=== PATIENT | male | born 1990 | race Caucasian/White ===

== ENCOUNTER 2020-12-30 20:22 | Emergency (ER) | payer OTHER ==
[~2020-12-30] VITALS: Ht 182.9 cm; Wt 106.7 kg
[~2020-12-30 20:22] MED LIST: TRM50T PO
[2020-12-30] MEDS ORDERED: LACTATED RINGERS 1,000 ML IV SCH (20:30)
[2020-12-30] MEDS ORDERED: NICOTINE 21 MG (NICODERM) PATCH TD ONE (20:30)
--- NOTE | 2020-12-30 20:38 | ED Chest Pain ---
General Chief Complaint: Chest Pain Stated Complaint: CHEST PAIN Source: patient Exam Limitations: no limitations History of Present Illness Date Seen by Provider: Dec 30, 2020 Time Seen by Provider: 20:24 Initial Comments 30-year-old male with no significant past medical history coming in due to chest pain. He states that started around 9 PM last night, is very sharp, intermittent, and occurs numerous times per hour. When it does occur, typically is a few seconds at a time and he notices it with breathing. He has never had pain like this before. Denies any personal history of blood clots in his leg or lungs. Denies any cough or hemoptysis. Denies any lower extremity pain or swelling. Denies any recent surgeries or long trips. Denies any family history of early cardiac . He does not take any medications daily. He says he feels anxious because he is trying to quit chewing tobacco and has not had any in over 24 hours and feels like he needs some right now. Allergies and Home Medications Allergies Coded Allergies: No Known Allergies (Unverified Allergy, Mild, 08/14/08) Patient Home Medication List Home Medication List Reviewed: Yes Review of Systems Review of Systems Constitutional: No fever EENTM: No Blurred Vision Respiratory: Denies Cough, Denies Shortness of Air Cardiovascular: Chest Pain Gastrointestinal: Denies Abdominal Pain, Denies Diarrhea, Denies Nausea Genitourinary: Denies Frequency Musculoskeletal: No back pain Skin: No rash Psychiatric/Neurological: Anxiety; Denies Depressed Endocrine: No Symptoms Reported Hematologic/Lymphatic: No Symptoms Reported All Other Systems Reviewed Negative Unless Noted: Yes Past Hoqbaqa-Rckogg-Hhvcxf Hx Patient Social History Tobacco Use?: Yes Smokeless Tobacco Frequency: Former User (Quit chewing tobacco yesterday) Immunizations Up To Date Tetanus Booster (TDap): Unknown Past Medical History Surgeries: Yes Abdominal Family Medical History No Pertinent Family Hx (Denies any family history of early cardiac or any family history of blood clots) Physical Exam Vital Signs Vital Signs - First Documented 12/30/20 20:24 Temp 36.8 Pulse 123 Resp 19 B/P (MAP) 149/84 (105) O2 Delivery Room Air Capillary Refill : Height, Weight, BMI Height: '" Weight: lbs. oz. kg; BMI Method:Stated General Appearance: No Apparent Distress, WD/WN HEENT: PERRL/EOMI, Normal ENT Inspection, Pharynx Normal Neck: Full Range of Motion, Normal Inspection, Non Tender, Supple Respiratory: Chest Non Tender, Lungs Clear, Normal Breath Sounds, No Accessory Muscle Use, No Respiratory Distress Cardiovascular: Regular Rate, Rhythm, No Edema, Normal Peripheral Pulses Gastrointestinal: Normal Bowel Sounds, Non Tender, Soft; No Distended, No Guarding Extremity: Normal Capillary Refill, Normal Inspection, Normal Range of Motion, Non Tender, No Calf Tenderness Neurologic/Psychiatric: Alert, No Motor/Sensory Deficits, Normal Mood/Affect Skin: Normal Color, Warm/Dry Lymphatic: No Adenopathy Progress/Results/Core Measures Results/Orders Lab Results Laboratory Tests Test 12/30/20 20:42 Range/Units White Blood Count 10.9 4.3-11.0 10^3/uL Red Blood Count 5.33 4.30-5.52 10^6/uL Hemoglobin 15.6 13.3-17.7 g/dL Hematocrit 46 40-54 % Mean Corpuscular Volume 85 80-99 fL Mean Corpuscular Hemoglobin 29 25-34 pg Mean Corpuscular Hemoglobin Concent 34 32-36 g/dL Red Cell Distribution Width 13.1 10.0-14.5 % Platelet Count 232 130-400 10^3/uL Mean Platelet Volume 11.7 9.0-12.2 fL Immature Granulocyte % (Auto) 1 % Neutrophils (%) (Auto) 69 42-75 % Lymphocytes (%) (Auto) 23 12-44 % Monocytes (%) (Auto) 6 0-12 % Eosinophils (%) (Auto) 1 0-10 % Basophils (%) (Auto) 1 0-10 % Neutrophils # (Auto) 7.5 1.8-7.8 X 10^3 Lymphocytes # (Auto) 2.5 1.0-4.0 X 10^3 Monocytes # (Auto) 0.6 0.0-1.0 X 10^3 Eosinophils # (Auto) 0.1 0.0-0.3 10^3/uL Basophils # (Auto) 0.1 0.0-0.1 10^3/uL Immature Granulocyte # (Auto) 0.1 0.0-0.1 10^3/uL D-Dimer 0.21 0.00-0.49 UG/ML Sodium Level 137 135-145 MMOL/L Potassium Level 4.3 3.6-5.0 MMOL/L Chloride Level 100 98-107 MMOL/L Carbon Dioxide Level 26 21-32 MMOL/L Anion Gap 11 5-14 MMOL/L Blood Urea Nitrogen 20 H 7-18 MG/DL Creatinine 1.21 0.60-1.30 MG/DL Estimat Glomerular Filtration Rate 71 BUN/Creatinine Ratio 17 Glucose Level 156 H 70-105 MG/DL Calcium Level 9.4 8.5-10.1 MG/DL Corrected Calcium 9.1 8.5-10.1 MG/DL Total Bilirubin 0.3 0.1-1.0 MG/DL Aspartate Amino Transf (AST/SGOT) 21 5-34 U/L Alanine Aminotransferase (ALT/SGPT) 11 0-55 U/L Alkaline Phosphatase 72 40-136 U/L Troponin I < 0.30 <0.30 NG/ML Total Protein 7.0 6.4-8.2 GM/DL Albumin 4.4 3.2-4.5 GM/DL My Orders Orders - RANCHO BARAHONA MD Cbc With Automated Diff (12/30/20 20:30) Chest 1 View Ap/Pa Only (12/30/20 20:30) Ekg Tracing (12/30/20 20:30) Comprehensive Metabolic Panel (12/30/20 20:30) O2 (12/30/20 20:30) Monitor-Rhythm Ecg Trace Only (12/30/20 20:30) Ed Iv/Invasive Line Start (12/30/20 20:30) Fibrin Degradation Products (12/30/20 20:30) Troponin I Fs (12/30/20 20:30) Nicotine Patch (Nicoderm Patch) (12/30/20 20:30) Lactated Ringers (Lr 1000 Ml Iv Solution (12/30/20 20:30) Medications Given in ED Current Medications Medications Dose Ordered Sig/Carmen Route Start Time Stop Time Status Last Admin Dose Admin Nicotine 21 mg ONCE ONCE TD 12/30/20 20:30 12/30/20 20:32 DC 12/30/20 20:47 21 MG Vital Signs/I&O 12/30/20 12/30/20 20:24 20:24 Temp 36.8 Pulse 123 Resp 19 B/P (MAP) 149/84 (105) O2 Delivery Room Air Room Air Progress Progress Note : Progress Note 30-year-old male with above history coming in due to chest pain. The patient was tachycardic on presentation between the one teens to 120s. He tells me he believes this is because he is anxious that he just quit chewing tobacco and has not had a dose in over 24 hours. An IV was placed and he was given a bolus of IV fluids. EKG obtained showing sinus tachycardia with a rate of one hundred and sixteen, narrow QRS, no significant T wave abnormalities, S1Q3T3 present but nonspecific. He does not have any risk factors for PE and is otherwise low risk, but is tachycardic. D-dimer order to further restratify him and was negative. Troponin is also negative. With constant pain for the past 24 hours I believe a single troponin rules out the risk of ACS, especially given his heart score is 1. Chest x-ray without pneumothorax, normal cardiac silhouette, no obvious pneumonia on my interpretation. Heart rate is going down appropriately with fluids. He was given a nicotine patch. His anxiety is going down he states. I do believe a lot of his symptoms could be attributed to nicotine dependence and not using it today trying to quit. I believe he is stable for discharge. He was sent home with strict return precautions. I given him information on how to follow-up with [facility] and recommended to do that within the week. Initial ECG Impression Date: Dec 30, 2020 Initial ECG Impression Time: 20:30 Initial ECG Rate: 116 Initial ECG Rhythm: S.Tach Comment Narrow QRS, normal axis, no significant ST changes Diagnostic Imaging Diagonstic Imaging: Xray Plain Films/CT/US/NM/MRI: chest Comments [facility]. [place], [place] NAME: RENATO GARCIA [facility] REC#: [id number] PT STATUS: REG ER : 1990 PHYSICIAN: RANCHO BARAHONA MD ADMIT DATE: 12/30/20/ER FS Signed Date of Exam:12/30/20 CHEST 1 VIEW AP/PA ONLY INDICATION: Chest pain. EXAMINATION: Portable chest at 8:23 PM. Heart size and pulmonary vascularity are normal. Lungs are clear. There is no effusion or pneumothorax. IMPRESSION: Negative chest. Dictated by: Dictated on workstation # [id number] Dict: 12/30/202049 Trans: 12/30/202050 [facility] [id number] Interpreted by: EMA SARKAR MD Electronically signed by: EMA SARKAR MD 12/30/202050 Departure Impression Primary Impression: Chest pain Qualified Codes: R07.1 - Chest pain on breathing Disposition: HOME, SELF-CARE Condition: Stable Departure-Patient Inst. Decision time for Depature: 21:42 Referrals: JONNIE CAMACHO DO (PCP/Family) Primary Care Physician Patient Instructions: Chest Pain (DC) Add. Discharge Instructions: He was seen in the emergency department for chest pain. Your work-up has been normal and it does not appear like you have had a heart attack or have any signs of a blood clot. Please call the [facility] and schedule an appointment for follow-up. If you have any worsening of symptoms or any other concerns and please come back to the emergency department. All discharge instructions reviewed with patient and/or family. Voiced understanding. RANCHO BARAHONA MD Dec 30, 2020 20:38
--- NOTE | 2020-12-30 20:53 | Diagnostic Imaging Report ---
INDICATION: Chest pain. EXAMINATION: Portable chest at 8:23 PM. Heart size and pulmonary vascularity are normal. Lungs are clear. There is no effusion or pneumothorax. IMPRESSION: Negative chest. Dictated by: Dictated on workstation # [id number]
[2020-12-30 20:54] LABS: WHITE BLOOD COUNT 10.9 10^3/uL (4.3-11.0)
[2020-12-30 20:55] LABS: BASOPHILS # (AUTO) 0.1 10^3/uL (0.0-0.1); BASOPHILS % (AUTO) 1 % (0-10); EOSINOPHILS # (AUTO) 0.1 10^3/uL (0.0-0.3); EOSINOPHILS % (AUTO) 1 % (0-10); HEMATOCRIT 46 % (40-54); HEMOGLOBIN 15.6 g/dL (13.3-17.7); LYMPHOCYTES # (AUTO) 2.5 X 10^3 (1.0-4.0); LYMPHOCYTES % (AUTO) 23 % (12-44); MEAN CORPUSCULAR HEMOGLOBIN 29 pg (25-34); MEAN CORPUSCULAR HGB CONC 34 g/dL (32-36); MEAN CORPUSCULAR VOLUME 85 fL (80-99); MEAN PLATELET VOLUME 11.7 fL (9.0-12.2); MONOCYTES # (AUTO) 0.6 X 10^3 (0.0-1.0); MONOCYTES % (AUTO) 6 % (0-12); NEUTROPHILS # (AUTO) 7.5 X 10^3 (1.8-7.8); NEUTROPHILS % (AUTO) 69 % (42-75); PLATELET COUNT 232 10^3/uL (130-400)
[2020-12-30 21:19] LABS: POTASSIUM 4.3 MMOL/L (3.6-5.0)
[2020-12-30 21:20] LABS: ALBUMIN 4.4 GM/DL (3.2-4.5); BILIRUBIN,TOTAL 0.3 MG/DL (0.1-1.0); CALCIUM 9.4 MG/DL (8.5-10.1); CREATININE SERUM 1.21 MG/DL (0.60-1.30)
[2020-12-30 21:53] VITALS: BP 112/86
== END 2020-12-30 21:53 | disposition home or self-care (01) ==
LOC: EDUNIT# 20:22 → ER FS 20:23
DX: R07.9 Chest pain, unspecified (principal); Z87.891 Personal history of nicotine dependence
CPT/HCPCS: 36415; 71045; 80053; 84484; 85025; 85379; 93005; 93041